=== PATIENT | male | born 1970 | race Caucasian/White ===

== ENCOUNTER 2017-05-22 08:18 | Emergency (ER) | payer OTHER ==
[~2017-05-22] VITALS: Ht 170.1 cm; Wt 61.2 kg
[~2017-05-22 08:18] MED LIST: AMOXICILLIN500 MG PO; MOTRIN800 MG PO
[2017-05-22] MEDS ORDERED: AMOXICILLIN500 M2 PO (08:26)
[2017-05-22] MEDS ORDERED: OMEPRAZOLE D/R20 MG PO (08:27)
[2017-05-22] MEDS ORDERED: SIMVASTATIN40 MG PO (08:27)
[2017-05-22] MEDS ORDERED: FLONASE ALLERG9.9 ML NAS (09:07)
[2017-05-22] MEDS ORDERED: CLARITIN10 MG PO (09:07)
== END 2017-05-22 09:12 | disposition home or self-care (01) ==
LOC: ED 08:18
DX: J30.2 Other seasonal allergic rhinitis (principal); R05 Cough; R09.89 Other specified symptoms and signs involving the circulatory and respiratory systems; R09.81 Nasal congestion; F17.200 Nicotine dependence, unspecified, uncomplicated; Z91.040 Latex allergy status; Z79.899 Other long term (current) drug therapy

== ENCOUNTER 2018-06-15 07:24 | Emergency (ER) | payer OTHER ==
[~2018-06-15] VITALS: Wt 59.0 kg
[~2018-06-15 07:24] MED LIST changes: +AMOXICILLIN500 M2 PO; +CLARITIN10 MG PO; +FLONASE ALLERG9.9 ML NAS; +OMEPRAZOLE D/R20 MG PO; +SIMVASTATIN40 MG PO
[2018-06-15] MEDS ORDERED: CLINDAMYCIN150 MG PO (08:28)
== END 2018-06-15 08:24 | disposition home or self-care (01) ==
LOC: ED 07:24
DX: L02.212 Cutaneous abscess of back [any part, except buttock and flank] (principal); Z79.899 Other long term (current) drug therapy; Z79.2 Long term (current) use of antibiotics

== ENCOUNTER → 2018-06-16 | Outpatient (CLI) | payer OTHER ==
[~2018-06-16] MED LIST changes: +CLINDAMYCIN150 MG PO
== END | disposition home or self-care (01) ==
LOC: WOUNDCARE 01:26
DX: L02.212 Cutaneous abscess of back [any part, except buttock and flank] (principal); L03.312 Cellulitis of back [any part except buttock and flank]; K21.9 Gastro-esophageal reflux disease without esophagitis; F17.290 Nicotine dependence, other tobacco product, uncomplicated

== ENCOUNTER → 2018-06-21 | Outpatient (CLI) | payer OTHER | END | disposition home or self-care (01) | LOC: WOUNDCARE 04:25 | DX: L02.212 Cutaneous abscess of back [any part, except buttock and flank] (principal); L03.312 Cellulitis of back [any part except buttock and flank]; K21.9 Gastro-esophageal reflux disease without esophagitis; F17.290 Nicotine dependence, other tobacco product, uncomplicated ==

== ENCOUNTER 2018-12-19 07:47 | Emergency (ER) | payer OTHER ==
[~2018-12-19] VITALS: Ht 177.8 cm; Wt 59.0 kg
[2018-12-19 08:09] LABS: BASO # 0.1 10*3/uL (0.0-0.1); BASO % 0.7 % (0.0-1.0); EOS # 0.2 10*3/uL (0.0-0.4); EOS % 2.1 % (1.0-4.0); HEMATOCRIT 46.8 % (42.0-52.0); HEMOGLOBIN 15.9 g/dl (14.0-18.0); LYMPH # 2.3 10*3/uL (1.3-4.4); LYMPH % 26.7 % (27.0-41.0); MEAN CELL VOLUME 87.2 fl (80.0-94.0); MEAN CORPUSCULAR HGB 29.6 pg (27.0-31.0); MEAN PLATELET VOLUME 9.3 fl (9.6-12.3); MONO # 0.9 10*3/uL (0.1-1.0); MONO % 10.8 % (3.0-9.0); NEUT # 5.2 10*3/uL (2.3-7.9); NEUT % 59.5 % (47.0-73.0); PLATELET COUNT AUTOMATED 308 10*3/uL (130-400); RED BLOOD COUNT 5.37 10*6/uL (4.50-5.90); RED CELL DISTRI WIDTH 13.5 % (0-14.5); WHITE BLOOD COUNT 8.7 10*3/uL (4.8-10.8)
[2018-12-19 08:21] LABS: ACT PARTIAL THROMBO TIME 29.1 SECONDS (20.0-32.1)
[2018-12-19] MEDS ORDERED: Zithromax200 MG/5 M PO (08:31)
[2018-12-19 08:41] LABS: ALBUMIN 3.8 gm/dl (3.1-4.5); ALKALINE PHOSPHATASE 91 U/L (45-117); BUN 9 mg/dl (7-24); CHLORIDE 108 mmol/L (98-107); CREATININE 1.02 mg/dL (0.70-1.30); POTASSIUM 4.3 mmol/L (3.5-5.1); SGOT/AST 20 IU/L (3-35); SGPT/ALT 17 U/L (12-78); SODIUM 139 mmol/L (136-145); TOTAL PROTEIN 7.4 gm/dL (6.4-8.2)
[2018-12-19] MEDS ORDERED: ANUSOL-HC25 MG R (08:48)
== END 2018-12-19 08:58 | disposition home or self-care (01) ==
LOC: ED 07:47
PROVIDERS: Emergency Medicine
DX: K64.4 Residual hemorrhoidal skin tags (principal); Z79.899 Other long term (current) drug therapy; Z79.2 Long term (current) use of antibiotics

== ENCOUNTER 2019-01-24 19:34 | Emergency (ER) | payer OTHER ==
[~2019-01-24] VITALS: Ht 177.8 cm; Wt 59.0 kg
[~2019-01-24 19:34] MED LIST changes: +ANUSOL-HC25 MG R; +Zithromax200 MG/5 M PO
[2019-01-24] MEDS ORDERED: Tobrex Ophth S2.5 ML OPH (20:07)
[2019-01-24] MEDS ORDERED: IBUPROFEN600 MG PO (20:07)
== END 2019-01-24 20:27 | disposition home or self-care (01) ==
LOC: ED 19:34
DX: S05.01XA Injury of conjunctiva and corneal abrasion without foreign body, right eye, initial encounter (principal); Z79.899 Other long term (current) drug therapy; Z79.2 Long term (current) use of antibiotics; W55.03XA Scratched by cat, initial encounter; Y93.89 Activity, other specified; Y92.098 Other place in other non-institutional residence as the place of occurrence of the external cause; Y99.8 Other external cause status

== ENCOUNTER 2019-07-01 09:04 | Emergency (ER) | payer OTHER ==
[~2019-07-01] VITALS: Ht 177.8 cm; Wt 61.2 kg
[~2019-07-01 09:04] MED LIST changes: +IBUPROFEN600 MG PO; +Tobrex Ophth S2.5 ML OPH
[2019-07-01] MEDS ORDERED: TESSALON PERLE100 M1 PO (09:49)
[2019-07-01] MEDS ORDERED: PROVENTIL HFA6.7 GM INH (09:49)
== END 2019-07-01 09:46 | disposition home or self-care (01) ==
LOC: ED 09:04
DX: J40 Bronchitis, not specified as acute or chronic (principal); F17.200 Nicotine dependence, unspecified, uncomplicated; Z79.899 Other long term (current) drug therapy

== ENCOUNTER 2020-10-12 15:56 | Emergency (ER) | payer OTHER ==
[~2020-10-12] VITALS: Ht 170.1 cm; Wt 65.8 kg
[~2020-10-12 15:56] MED LIST changes: +PROVENTIL HFA6.7 GM INH; +TESSALON PERLE100 M1 PO
[2020-10-12] MEDS ORDERED: KENALOG 0.025%15 GM T (16:13)
[2020-10-12] MEDS ORDERED: VISTARIL25 MG PO (16:13)
== END 2020-10-12 16:32 | disposition home or self-care (01) ==
LOC: ED 15:56
DX: L25.9 Unspecified contact dermatitis, unspecified cause (principal); Z79.899 Other long term (current) drug therapy

== ENCOUNTER → 2021-04-16 | Outpatient (CLI) | payer OTHER ==
[~2021-04-16] MED LIST changes: +KENALOG 0.025%15 GM T; +VISTARIL25 MG PO
== END | disposition home or self-care (01) ==
LOC: COVID19 15:30
PROVIDERS: ATTEND Internal Medicine
DX: U07.1 COVID-19 (principal)

== ENCOUNTER → 2021-04-28 | Outpatient (CLI) | payer OTHER | END | disposition home or self-care (01) | LOC: COVID19 14:56 | PROVIDERS: ATTEND Internal Medicine | DX: U07.1 COVID-19 (principal) ==

== ENCOUNTER 2022-01-17 10:54 | Emergency (ER) | payer OTHER ==
[~2022-01-17] VITALS: Ht 167.6 cm; Wt 64.4 kg
[2022-01-17 11:15] LABS: BASO # 0.1 10*3/uL (0.0-0.1); BASO % 0.3 % (0.0-1.0); EOS # 0.1 10*3/uL (0.0-0.4); EOS % 0.5 % (1.0-4.0); HEMATOCRIT 46.6 % (42.0-52.0); LYMPH # 2.3 10*3/uL (1.3-4.4); LYMPH % 16.1 % (27.0-41.0); MEAN CELL VOLUME 87.9 fl (80.0-94.0); MEAN CORPUSCULAR HGB 29.1 pg (27.0-31.0); MEAN PLATELET VOLUME 9.5 fl (9.6-12.3); MONO # 0.6 10*3/uL (0.1-1.0); MONO % 3.9 % (3.0-9.0); NEUT # 11.4 10*3/uL (2.3-7.9); NEUT % 78.8 % (47.0-73.0); PLATELET COUNT AUTOMATED 276 10*3/uL (130-400); RED CELL DISTRI WIDTH 13.3 % (0-14.5); WHITE BLOOD COUNT 14.5 10*3/uL (4.8-10.8)
[2022-01-17 11:28] LABS: ACT PARTIAL THROMBO TIME 27.1 SECONDS (20.0-32.1)
[2022-01-17 11:30] LABS: ALKALINE PHOSPHATASE 85 U/L (45-117); BUN 13 mg/dl (7-24); CHLORIDE 110 mmol/L (98-107); CREATININE 0.84 mg/dL (0.70-1.30); POTASSIUM 3.7 mmol/L (3.5-5.1); SGOT/AST 29 IU/L (3-35); SGPT/ALT 23 U/L (12-78); SODIUM 134 mmol/L (136-145); TOTAL PROTEIN 7.1 gm/dL (6.4-8.2)
== END 2022-01-17 11:50 | disposition short-term general hospital (02) ==
LOC: ED 10:54
PROVIDERS: Emergency Medicine
DX: I21.3 ST elevation (STEMI) myocardial infarction of unspecified site (principal); E78.00 Pure hypercholesterolemia, unspecified; Z79.899 Other long term (current) drug therapy

== ENCOUNTER 2022-01-24 20:48 | Emergency (ER) | payer OTHER ==
[~2022-01-24] VITALS: Ht 167.6 cm; Wt 59.0 kg
[2022-01-24] MEDS ORDERED: NYST SUSP PO (22:47)
== END 2022-01-24 23:09 | disposition home or self-care (01) ==
LOC: ED 20:48
DX: J02.9 Acute pharyngitis, unspecified (principal); Z20.822 Contact with and (suspected) exposure to COVID-19; Z79.899 Other long term (current) drug therapy

== ENCOUNTER → 2022-11-16 | Outpatient (CLI) | payer OTHER ==
[~2022-11-16] MED LIST changes: +NYST SUSP PO
== END | disposition home or self-care (01) ==
LOC: CT 12:39
PROVIDERS: ATTEND Physician Assistant
DX: Z12.2 Encounter for screening for malignant neoplasm of respiratory organs (principal); I21.9 Acute myocardial infarction, unspecified; K21.9 Gastro-esophageal reflux disease without esophagitis; I10 Essential (primary) hypertension; I25.10 Atherosclerotic heart disease of native coronary artery without angina pectoris; F17.211 Nicotine dependence, cigarettes, in remission; R91.8 Other nonspecific abnormal finding of lung field; J43.9 Emphysema, unspecified

== ENCOUNTER 2023-02-04 12:35 | Emergency (ER) | payer OTHER ==
[~2023-02-04] VITALS: Wt 77.1 kg
== END 2023-02-04 14:09 | disposition home or self-care (01) ==
LOC: ED 12:35
DX: H57.09 Other anomalies of pupillary function (principal); Z98.890 Other specified postprocedural states

== ENCOUNTER → 2023-06-08 | Outpatient (CLI) | payer OTHER | LOC: RAD 11:30 | PROVIDERS: ATTEND Physician Assistant | DX: M25.569 Pain in unspecified knee (principal) ==

== ENCOUNTER → 2023-08-10 | Outpatient (CLI) | payer OTHER | END | disposition home or self-care (01) | LOC: CT 00:29 | PROVIDERS: ATTEND Internal Medicine Hematology & Oncology | DX: R91.1 Solitary pulmonary nodule (principal); J43.9 Emphysema, unspecified; C34.12 Malignant neoplasm of upper lobe, left bronchus or lung; J84.9 Interstitial pulmonary disease, unspecified; I25.10 Atherosclerotic heart disease of native coronary artery without angina pectoris ==

== ENCOUNTER → 2023-11-12 | Outpatient (CLI) | payer OTHER | END | disposition home or self-care (01) | LOC: RAD 01:43 | PROVIDERS: ATTEND Physician Assistant | DX: C34.12 Malignant neoplasm of upper lobe, left bronchus or lung (principal); J43.9 Emphysema, unspecified; E78.2 Mixed hyperlipidemia; K21.9 Gastro-esophageal reflux disease without esophagitis; I25.10 Atherosclerotic heart disease of native coronary artery without angina pectoris ==

== ENCOUNTER 2023-12-05 18:01 | Emergency (ER) | payer OTHER ==
[~2023-12-05] VITALS: Ht 170.1 cm; Wt 76.7 kg
[2023-12-05] MEDS ORDERED: Albuterol Sulfate 2.5 MG/3 ML VIAL NEB ONE (18:05)
[2023-12-05] MEDS ORDERED: AZITHROMYCIN 250 MG TAB PO ONE (18:10)
[2023-12-05] MEDS ORDERED: MORPHINE Sulfate 2 MG/ML SYR IV ONE (18:10)
[2023-12-05] MEDS ORDERED: Ondansetron Hydrochloride 4 MG/2 ML VIAL IV ONE (18:10)
[2023-12-05] MEDS ORDERED: MAGNESIUM SULFATE 50 ML IV ONE (18:10)
[2023-12-05] MEDS ORDERED: methylPREDNISolone sod succ 125 MG VIAL IV ONE (18:10)
[2023-12-05] MEDS ORDERED: ATORVASTATIN CA40 M1 PO (18:11)
[2023-12-05] MEDS ORDERED: ASPIRIN FOR CHI81 MG PO (18:11)
[2023-12-05] MEDS ORDERED: METOPROLOL SUCC50 M1 PO (18:11)
[2023-12-05] MEDS ORDERED: SPIRIVA RESPIMAT4 GM INH (18:11)
[2023-12-05] MEDS ORDERED: RAMIPRIL1.25 MG PO (18:12)
[2023-12-05 18:17] LABS: BASO # 0.1 10*3/uL (0.0-0.1); BASO % 1.1 % (0.0-1.0); EOS # 0.3 10*3/uL (0.0-0.4); EOS % 3.2 % (1.0-4.0); LYMPH % 34.9 % (27.0-41.0); MEAN CELL VOLUME 84.4 fl (80.0-94.0); MEAN CORPUSCULAR HGB 28.3 pg (27.0-31.0); MEAN CORPUSCULAR HGB CONC 33.6 g/dl (33.0-37.0); MEAN PLATELET VOLUME 9.1 fl (9.6-12.3); MONO # 0.8 10*3/uL (0.1-1.0); MONO % 8.8 % (3.0-9.0); NEUT # 4.4 10*3/uL (2.3-7.9); NEUT % 51.4 % (47.0-73.0); PLATELET COUNT AUTOMATED 310 10*3/uL (130-400); RED BLOOD COUNT 5.33 10*6/uL (4.50-5.90); RED CELL DISTRI WIDTH 12.9 % (0-14.5); WHITE BLOOD COUNT 8.5 10*3/uL (4.8-10.8)
[2023-12-05 18:32] LABS: BUN 7 mg/dl (9-23); CHLORIDE 106 mmol/L (98-107); POTASSIUM 3.9 mmol/L (3.4-5.1)
[2023-12-05] MEDS ORDERED: PREDNISONE20 M1 PO (18:48)
[2023-12-05] MEDS ORDERED: AVPAK AZITHROM250 M1 PO (18:48)
[2023-12-05] MEDS ORDERED: DOCUSATE SODIUM 100 MG/10 ML UDC PO ONE (18:50)
== END 2023-12-05 19:41 | disposition home or self-care (01) ==
LOC: ED 18:01
PROVIDERS: Emergency Medicine
DX: J44.1 Chronic obstructive pulmonary disease with (acute) exacerbation (principal); H61.23 Impacted cerumen, bilateral; R07.89 Other chest pain; R42 Dizziness and giddiness; I25.10 Atherosclerotic heart disease of native coronary artery without angina pectoris; I10 Essential (primary) hypertension; E78.5 Hyperlipidemia, unspecified; F17.200 Nicotine dependence, unspecified, uncomplicated; Z98.890 Other specified postprocedural states

== ENCOUNTER → 2023-12-15 | Outpatient (CLI) | payer OTHER ==
[~2023-12-15] MED LIST changes: +ASPIRIN FOR CHI81 MG PO; +ATORVASTATIN CA40 M1 PO; +AVPAK AZITHROM250 M1 PO; +METOPROLOL SUCC50 M1 PO; +PREDNISONE20 M1 PO; +RAMIPRIL1.25 MG PO; +Regadenoson 0.4 MG/5 ML SYR IV ONE; +SPIRIVA RESPIMAT4 GM INH; +Technetium Tc 99M Tetrofosmi 0.23 MG KIT IJ SCH
== END | disposition home or self-care (01) ==
LOC: CARD 00:37
PROVIDERS: ATTEND Internal Medicine Cardiovascular Disease
DX: R06.02 Shortness of breath (principal); R07.9 Chest pain, unspecified

== ENCOUNTER → 2023-12-27 | Outpatient (CLI) | payer OTHER ==
[~2023-12-27] MED LIST changes: -Regadenoson 0.4 MG/5 ML SYR IV ONE; -Technetium Tc 99M Tetrofosmi 0.23 MG KIT IJ SCH
== END | disposition home or self-care (01) ==
LOC: CARD 02:28
PROVIDERS: ATTEND Internal Medicine Cardiovascular Disease
DX: I34.0 Nonrheumatic mitral (valve) insufficiency (principal); R06.02 Shortness of breath; I31.39 Other pericardial effusion (noninflammatory)

== ENCOUNTER → 2024-01-25 | Outpatient (CLI) | payer OTHER | END | disposition home or self-care (01) | LOC: CT 02:12 | PROVIDERS: ATTEND Internal Medicine Hematology & Oncology | DX: C34.12 Malignant neoplasm of upper lobe, left bronchus or lung (principal); J43.9 Emphysema, unspecified; R91.1 Solitary pulmonary nodule; I25.10 Atherosclerotic heart disease of native coronary artery without angina pectoris; M47.814 Spondylosis without myelopathy or radiculopathy, thoracic region ==

== ENCOUNTER → 2024-07-10 | Outpatient (CLI) | payer OTHER ==
[2024-07-10 08:34] LABS: BASO # 0.1 10*3/uL (0.0-0.1); BASO % 0.8 % (0.0-1.0); EOS # 0.4 10*3/uL (0.0-0.4); EOS % 3.4 % (1.0-4.0); HEMATOCRIT 44.3 % (42.0-52.0); MEAN CELL VOLUME 84.1 fl (80.0-94.0); MEAN CORPUSCULAR HGB 27.7 pg (27.0-31.0); MONO # 1.1 10*3/uL (0.1-1.0); MONO % 9.5 % (3.0-9.0); NEUT # 6.3 10*3/uL (2.3-7.9); NEUT % 54.9 % (47.0-73.0); PLATELET COUNT AUTOMATED 342 10*3/uL (130-400); RED BLOOD COUNT 5.27 10*6/uL (4.50-5.90); RED CELL DISTRI WIDTH 13.4 % (0-14.5); WHITE BLOOD COUNT 11.6 10*3/uL (4.8-10.8)
[2024-07-10 09:33] LABS: ALKALINE PHOSPHATASE 110 U/L (46-116); BUN 15 mg/dl (9-23); CHLORIDE 104 mmol/L (98-107); POTASSIUM 4.5 mmol/L (3.4-5.1); SGPT/ALT 28 U/L (5-49); TOTAL PROTEIN 7.2 gm/dL (6.0-8.0)
== END | disposition home or self-care (01) ==
LOC: CT 08:07
PROVIDERS: ATTEND Internal Medicine Hematology & Oncology
DX: C34.12 Malignant neoplasm of upper lobe, left bronchus or lung (principal); J92.9 Pleural plaque without asbestos; J43.9 Emphysema, unspecified; I25.10 Atherosclerotic heart disease of native coronary artery without angina pectoris; Z98.890 Other specified postprocedural states

== ENCOUNTER → 2024-08-22 | Outpatient (CLI) | payer OTHER ==
[~2024-08-22] MED LIST changes: +FINASTERIDE5 M1 PO; +Regadenoson 0.4 MG/5 ML SYR IV ONE; +TAMSULOSIN HCL0.4 MG PO
== END | disposition home or self-care (01) ==
LOC: CARD 03:00
PROVIDERS: ATTEND Internal Medicine Cardiovascular Disease
DX: I20.9 Angina pectoris, unspecified (principal); Z95.5 Presence of coronary angioplasty implant and graft

== ENCOUNTER → 2024-11-08 | Outpatient (CLI) | payer OTHER ==
[~2024-11-08] MED LIST changes: -Regadenoson 0.4 MG/5 ML SYR IV ONE
[2024-11-08 08:50] LABS: PLATELET COUNT AUTOMATED 342.0 10*3/uL (130-400)
[2024-11-08 09:36] LABS: BUN 11 mg/dl (9-23)
== END | disposition home or self-care (01) ==
LOC: LAB 08:24
PROVIDERS: ATTEND Internal Medicine Cardiovascular Disease
DX: Z01.812 Encounter for preprocedural laboratory examination (principal)

== ENCOUNTER → 2025-01-24 | Outpatient (CLI) | payer OTHER | END | disposition home or self-care (01) | LOC: CT 10:09 | PROVIDERS: ATTEND Internal Medicine Hematology & Oncology | DX: J43.2 Centrilobular emphysema (principal); C34.12 Malignant neoplasm of upper lobe, left bronchus or lung; Z90.2 Acquired absence of lung [part of] ==